=== PATIENT | female | born 1990 | race Hispanic/Latino ===

== ENCOUNTER 2019-07-11 15:20 | Observation (INO) | payer MEDICAID ==
[~2019-07-11] VITALS: Ht 162.6 cm; Wt 74.8 kg
[2019-07-11 15:44] VITALS: BP 128/77
--- NOTE | 2019-07-11 15:50 | NUR ---
EFM started at 1550, discontinued at 1655 FHT - 130 , with breaks in tracing no contractions, with 15x15 accelerations reactive strip Addendum: 07/11/19 at 1728 by JOE GOMEZ RN Amended: Links added.
[2019-07-11] MEDS ORDERED: PREN-196 PO (16:07)
[2019-07-11] MEDS ORDERED: SODIUM CHLORIDE 0.9% 1000ML 1,000 ML IV SCH (16:15)
[2019-07-11 17:08] LABS: HEMATOCRIT 23.2 % (36-48); MEAN CORPUSCULAR HEMOGLOBIN 17.8 pg (27.0-33.0); MEAN CORPUSCULAR HGB CONC 28.4 g/dL (32.0-36.0); MEAN CORPUSCULAR VOLUME 62.7 fL (79-99); NUCLEATED RED BLOOD CELLS 0.3 % (0.0-0.19); PLATELET COUNT (AUTO) 169 K/uL (130-400); RED CELL DISTRIBUTION WIDTH 18.3 % (11.0-15.5); WHITE BLOOD COUNT (AUTO) 8.7 K/uL (4.8-10.8)
[2019-07-11] MEDS ORDERED: FLU VACC QS2019-20 36MOS UP/PF 60 MCG/0.5 ML ML IM ONE (18:30)
[2019-07-11 19:11] VITALS: BP 116/71
[2019-07-11 23:40] VITALS: BP 118/80
[2019-07-12 03:50] VITALS: BP 128/73
[2019-07-12] MEDS ORDERED: FLU VACC QS2019-20 36MOS UP/PF 60 MCG/0.5 ML ML IM SCH (06:15)
[2019-07-12] MEDS ORDERED: FLU VACC QS2019-20 36MOS UP/PF 60 MCG/0.5 ML ML IM ONE (07:00)
[2019-07-12 07:16] LABS: HEMATOCRIT 30.3 % (36-48); MEAN CORPUSCULAR HEMOGLOBIN 20.7 pg (27.0-33.0); NUCLEATED RED BLOOD CELLS 0.6 % (0.0-0.19); PLATELET COUNT (AUTO) 150 K/uL (130-400); RED BLOOD CELL COUNT(AUTO) 4.39 MIL/uL (4.00-5.50); RED CELL DISTRIBUTION WIDTH 24.4 % (11.0-15.5); WHITE BLOOD COUNT (AUTO) 8.9 K/uL (4.8-10.8)
[2019-07-12 07:51] VITALS: BP 123/68
--- NOTE | 2019-07-12 08:36 | NUR ---
EFM started at 0744, discontinued at 0836 FHT - 130 , with irregular contractions not felt by pt 15x 15 accelerations reactive strip Addendum: 07/12/19 at 0848 by JOE GOMEZ RN Amended: Links added.
--- NOTE | 2019-07-12 08:45 | NUR ---
Verbal and written discharge instructions given, informed to keep scheduled follow up appointment, informed to call for the doctor for any concerns or assistance, pt voiced understanding to all things discussed. Addendum: 07/12/19 at 1346 by JOE GOMEZ RN Amended: Links added.
--- NOTE | 2019-07-12 09:05 | NUR ---
Pt is dismissed, brought to private car via wheelchair by [facility]ia. pt is in stable condition. Addendum: 07/12/19 at 1017 by JOE GOMEZ RN Amended: Links added.
== END 2019-07-12 09:20 | disposition home or self-care (01) ==
LOC: EDH 15:20 → LDH 15:21 → WSH 15:40
PROVIDERS: ADMIT Obstetrics & Gynecology; ATTEND Obstetrics & Gynecology
DX: O99.013 Anemia complicating pregnancy, third trimester (principal); Z3A.31 31 weeks gestation of pregnancy; Z23 Encounter for immunization
CPT/HCPCS: 36415 ×2; 36430 ×3; 59025; 85027 ×2; 86850; 86870; 86900; 86901; 86922 ×2; 90471; 99284; G0378 ×13; P9016 ×3; Q2035